=== PATIENT | male | born 1940 | race African-American/Black ===

== ENCOUNTER 2021-01-01 10:54 | Inpatient (IN) | payer SELFPAY ==
--- NOTE | 2021-01-01 12:45 | CR ---
Chest: Portable view of the chest was obtained. Comparison: No prior chest imaging is available. Patchy increased density is noted within the right upper and right lower chest. Slight atelectasis is seen within the left base. Heart size at the upper limits of normal. Tortuous thoracic aorta is seen. Impression: 1. Patchy increased density within the right upper and right lower lung. Please rule out COVID disease. Findings otherwise represent mild multifocal pneumonia. 2. Slight atelectasis and other findings as noted above. Diagnostic code #3
--- NOTE | 2021-01-01 12:52 | EDM.PDOC ---
ED HPI GENERAL MEDICAL PROBLEM - General Chief Complaint: Respiratory Problem Stated Complaint: POSS COVID Time Seen by Provider: 01/01/21 11:45 Source of Information: Reports: Patient, Family (Son- Rolf on phone helps to interpret), RN Notes Reviewed History Limitations: Reports: Language Barrier (pt does not speak Mohawk-son and daughter in law help to translat over the phone) - History of Present Illness INITIAL COMMENTS - FREE TEXT/NARRATIVE: Patient is an 80-year-old male who presents to the ER for evaluation of ongoing COVID-19 symptoms. Patient is not Mohawk speaking, but his son and [id number] helped to translate over the phone. The patient's was diagnosed with COVID-19 earlier this week, and the patient was having issues with shortness of breath, feeling generalized anxiety, and exhibiting some COVID-19 symptoms throughout the week. He presents to the ER via the direction of his family members to be checked out. They wanted to know if he had COVID-19 or not. Patient's O2 sats at time of triage were somewhat low, in the mid 80s he was placed on 2 L via nasal cannula and immediately improved to 96 to 97% on 2 L, and he was titrated to 1 L at that time, and subsequently had oxygen levels at around 93 to 94%. I did at that time turn his oxygen level off, and he did dip back down to 88% on room air. The family member also notes that he has issues with hearing, and previously had lung issues, that they equated to asthma but they were not sure of the exact diagnosis. But he was let go from work [place], due to his chronic lung disease. - Related Data Allergies Allergy/AdvReac Type Severity Reaction Status Date / Time No Known Allergies Allergy Verified 01/01/21 17:19 Home Meds: Home Meds . [No Known Home Meds] 01/01/21 [History] Past Medical History Respiratory History: Reports: Asthma Social & Family History - Tobacco Use Tobacco Use Status *Q: Never Tobacco User - Recreational Drug Use Recreational Drug Use: No ED ROS GENERAL - Review of Systems Review Of Systems: Comprehensive ROS is negative, except as noted in HPI. ED EXAM, GENERAL - Physical Exam Exam: See Below Exam Limited By: No Limitations General Appearance: Alert, WD/WN, No Apparent Distress Respiratory/Chest: No Respiratory Distress, Normal Breath Sounds, No Accessory Muscle Use, Chest Non-Tender, Decreased Breath Sounds (diffusely diminished bilaterally) Cardiovascular: Normal Peripheral Pulses, Regular Rate, Rhythm, No Edema Extremities: Normal Inspection, Normal Capillary Refill Neurological: Alert, Oriented, Normal Cognition, No Motor/Sensory Deficits Psychiatric: Normal Affect, Normal Mood Skin Exam: Warm, Dry, Intact, Normal Color, No Rash, Other (several linear scars across mid chest) #1 Interpretation EKG Date: 01/01/21 Time: 12:00 Rhythm: NSR Rate (Beats/Min): 69 [place]: Normal P-Wave: Present QRS: Normal ST-T: Normal QT: Normal Comparison: NA - No Prior EKG EKG Interpretation Comments: No obvious ischemia or acute ST changes noted, reviewed by myself and Dr. Chacko. Course - Vital Signs Last Recorded V/S: Last Vital Signs Temp 99.9 F 01/01/21 15:52 Pulse 70 01/01/21 15:52 Resp 18 01/01/21 15:52 BP 136/82 01/01/21 18:24 Pulse Ox 97 01/01/21 15:52 - Orders/Labs/Meds Orders: Active Orders 24 hr Category Date Time Status Admission Status [Patient Status] [ADT] Routine ADT 01/01/21 14:49 Active BLOOD CULTURE [MREF] Stat Lab 01/01/21 12:37 Received BLOOD CULTURE [MREF] Stat Lab 01/01/21 15:10 Received Sodium Chloride 0.9% [Normal Saline] 100 ml Med 01/01/21 13:30 Active IV ASDIRECTED Sodium Chloride 0.9% [Saline Flush] Med 01/01/21 13:00 Active 10 ml FLUSH ASDIRECTED PRN Sodium Chloride 0.9% [Saline Flush] Med 01/01/21 13:23 Active 10 ml FLUSH ONETIME PRN Blood Culture x2 Reflex Set [OM.PC] Stat Oth 01/01/21 14:05 Ordered Peripheral IV Insertion Adult [OM.PC] Routine Oth 01/01/21 13:00 Ordered EKG 12 Lead [EK] Stat Ther 01/01/21 11:54 Ordered Medication Orders Acetaminophen (Acetaminophen 325 Mg Tab) 650 mg PO Q4H PRN PRN Reason: Pain (Mild 1-3)/fever Dexamethasone (Dexamethasone 4 Mg Tab) 6 mg PO DAILY@1300 P[facility]RO Stop: 01/10/21 13:01 Enoxaparin Sodium (Enoxaparin 40 Mg/0.4 Ml Syringe) 40 mg SUBCUT DAILY [facility] Famotidine (Famotidine 20 Mg Tab) 20 mg PO BID [facility] Last Admin: 01/01/21 21:01 Dose: 20 mg Documented by: MARK Sodium Chloride (Normal Saline) 100 mls @ 75 mls/hr IV ASDIRECTED PEDRO Remdesivir 100 mg/ Sodium (Chloride) 100 mls @ 100 mls/hr IV Q24H [facility] Stop: 01/05/21 15:59 Melatonin (Melatonin 3 Mg Tab) 6 mg PO BEDTIME [facility] Last Admin: 01/01/21 21:01 Dose: 6 mg Documented by: MARK Sodium Chloride (Sodium Chloride 0.9% 10 Ml Syringe) 10 ml FLUSH ASDIRECTED PRN PRN Reason: Keep Vein Open Last Admin: 01/01/21 13:10 Dose: 10 ml Documented by: ZAHEER Sodium Chloride (Sodium Chloride 0.9% 10 Ml Syringe) 10 ml FLUSH ONETIME PRN PRN Reason: IV FLUSH Zinc Sulfate (Zinc Sulfate 220 Mg Cap) 220 mg PO DAILY [facility] Labs: Laboratory Tests 01/01/21 01/01/21 01/01/21 Range/Units 12:00 12:16 12:16 WBC 2.47 L* (4.23-9.07) K/mm3 RBC 5.72 (4.63-6.08) M/mm3 Hgb 15.1 (13.7-17.5) gm/dl Hct 45.5 (40.1-51.0) % MCV 79.5 (79.0-92.2) fl MCH 26.4 (25.7-32.2) pg MCHC 33.2 (32.2-35.5) g/dl RDW Std Deviation 49.2 H (35.1-43.9) fL Plt Count 100 L (163-337) K/mm3 MPV 10.5 (9.4-12.3) fl Neut % (Auto) 60.3 (34.0-67.9) % Lymph % (Auto) 25.5 (21.8-53.1) % [place] % (Auto) 13.4 H (5.3-12.2) % Eos % (Auto) 0 L (0.8-7.0) Baso % (Auto) 0.4 (0.1-1.2) % Neut # (Auto) 1.49 L (1.78-5.38) K/mm3 Lymph # (Auto) 0.63 L (1.32-3.57) K/mm3 [place] # (Auto) 0.33 (0.30-0.82) K/mm3 Eos # (Auto) 0.00 L (0.04-0.54) K/mm3 Baso # (Auto) 0.01 (0.01-0.08) K/mm3 D-Dimer, Quantitative 6.15 H (0.19-0.50) mg/L Sodium (136-145) mEq/L Potassium (3.5-5.1) mEq/L Chloride (98-107) mEq/L Carbon Dioxide (21-32) mEq/L Anion Gap (5-15) BUN (7-18) mg/dL Creatinine (0.7-1.3) mg/dL Est Cr Clr Drug Dosing mL/min Estimated GFR (MDRD) (>60) mL/min BUN/Creatinine Ratio (14-18) Glucose (70-99) mg/dL Lactic Acid (0.4-2.0) mmol/L Calcium (8.5-10.1) mg/dL Total Bilirubin (0.2-1.0) mg/dL AST (15-37) U/L ALT (16-63) U/L Alkaline Phosphatase (46-116) U/L Troponin I (0.00-0.056) ng/mL Total Protein (6.4-8.2) g/dl Albumin (3.4-5.0) g/dl Globulin gm/dL Albumin/Globulin Ratio (1-2) SARS-CoV-2 RNA (CHELY) Positive H (NEGATIVE) 01/01/21 01/01/21 Range/Units 12:16 12:37 WBC (4.23-9.07) K/mm3 RBC (4.63-6.08) M/mm3 Hgb (13.7-17.5) gm/dl Hct (40.1-51.0) % MCV (79.0-92.2) fl MCH (25.7-32.2) pg MCHC (32.2-35.5) g/dl RDW Std Deviation (35.1-43.9) fL Plt Count (163-337) K/mm3 MPV (9.4-12.3) fl Neut % (Auto) (34.0-67.9) % Lymph % (Auto) (21.8-53.1) % [place] % (Auto) (5.3-12.2) % Eos % (Auto) (0.8-7.0) Baso % (Auto) (0.1-1.2) % Neut # (Auto) (1.78-5.38) K/mm3 Lymph # (Auto) (1.32-3.57) K/mm3 [place] # (Auto) (0.30-0.82) K/mm3 Eos # (Auto) (0.04-0.54) K/mm3 Baso # (Auto) (0.01-0.08) K/mm3 D-Dimer, Quantitative (0.19-0.50) mg/L Sodium 134 L (136-145) mEq/L Potassium 3.8 (3.5-5.1) mEq/L Chloride 99 (98-107) mEq/L Carbon Dioxide 30 (21-32) mEq/L Anion Gap 8.8 (5-15) BUN 9 (7-18) mg/dL Creatinine 1.0 (0.7-1.3) mg/dL Est Cr Clr Drug Dosing 61.70 mL/min Estimated GFR (MDRD) > 60 (>60) mL/min BUN/Creatinine Ratio 9.0 L (14-18) Glucose 88 (70-99) mg/dL Lactic Acid 3.6 H* (0.4-2.0) mmol/L Calcium 8.1 L (8.5-10.1) mg/dL Total Bilirubin 0.3 (0.2-1.0) mg/dL AST 52 H (15-37) U/L ALT 36 (16-63) U/L Alkaline Phosphatase 90 (46-116) U/L Troponin I 0.021 (0.00-0.056) ng/mL Total Protein 7.5 (6.4-8.2) g/dl Albumin 3.2 L (3.4-5.0) g/dl Globulin 4.3 gm/dL Albumin/Globulin Ratio 0.7 L (1-2) SARS-CoV-2 RNA (CHELY) (NEGATIVE) Meds: Medications Generic Name Dose Route Start Last Admin Trade Name Nagi PRN Reason Stop Dose Admin Acetaminophen 650 mg 01/01/21 19:12 Acetaminophen 325 Mg Tab PO Q4H PRN Pain (Mild 1-3)/fever Dexamethasone 6 mg 01/02/21 13:00 Dexamethasone 4 Mg Tab PO 01/10/21 13:01 DAILY@1300 PEDRO Enoxaparin Sodium 40 mg 01/02/21 09:00 Enoxaparin 40 Mg/0.4 Ml Syringe SUBCUT DAILY [facility] Famotidine 20 mg 01/01/21 21:00 01/01/21 21:01 Famotidine 20 Mg Tab PO 20 mg BID [facility] Administration Sodium Chloride 100 mls @ 75 mls/hr 01/01/21 13:30 Normal Saline IV ASDIRECTED PEDRO Remdesivir 100 mg/ Sodium 100 mls @ 100 mls/hr 01/02/21 15:00 Chloride IV 01/05/21 15:59 Q24H PEDRO Melatonin 6 mg 01/01/21 21:00 01/01/21 21:01 Melatonin 3 Mg Tab PO 6 mg BEDTIME [facility]RO Administration Sodium Chloride 10 ml 01/01/21 13:00 01/01/21 13:10 Sodium Chloride 0.9% 10 Ml Syringe FLUSH 10 ml ASDIRECTED PRN Administration Keep Vein Open Sodium Chloride 10 ml 01/01/21 13:23 Sodium Chloride 0.9% 10 Ml Syringe FLUSH ONETIME PRN IV FLUSH Zinc Sulfate 220 mg 01/02/21 09:00 Zinc Sulfate 220 Mg Cap PO DAILY [facility]RO Discontinued Medications Generic Name Dose Route Start Last Admin Trade Name Nagi PRN Reason Stop Dose Admin Dexamethasone 6 mg 01/01/21 14:06 01/01/21 14:25 Dexamethasone 10 Mg/Ml Sdv IVPUSH 01/01/21 14:07 6 mg ONETIME ONE Administration Ceftriaxone Sodium 2 gm/ 100 mls @ 200 mls/hr 01/01/21 14:06 01/01/21 14:24 Sodium Chloride IV 01/01/21 14:35 200 mls/hr ONETIME ONE Administration Remdesivir 200 mg/ Sodium 250 mls @ 250 mls/hr 01/01/21 15:00 01/01/21 15:09 Chloride IV 01/01/21 15:59 250 mls/hr ONETIME ONE Administration Iopamidol 100 ml 01/01/21 13:23 01/01/21 18:07 Iopamidol 755 Mg/Ml 100 Ml Bottle IVPUSH 01/01/21 13:24 Not Given ONETIME ONE - Re-Assessments/Exams Free Text/Narrative Re-Assessment/Exam: 01/01/21 13:00 Patient presents to the ER for the evaluation of his suspected COVID-19 disease. was diagnosed with COVID-19 earlier this week. O2 sats were low at the time of triage, and was placed on oxygen, and is still requiring oxygen at this time. His Covid screen did come back positive., And his D-dimer is elevated at 6.15, and his white cell count is low at 2.47, which could be due to viral disease. We have no other labs to compare to. His chest x-ray did show patchy increased density within the right upper and right lower lung, consistent with multifocal pneumonia, most consistent with COVID-19 disease. There is also slight atelectasis noted. I will go over these findings with the patient's family member, for further management. 01/01/21 13:44 I was able to speak with the patient's son again, he states that the patient speaks language, and the dialect of [place], [place], and [place]. I was able to find Eliana on [facility]. The patient's son is concerned, due to the patient's being at home, and sick that he may not do well at home, if we will try to send him home with oxygen, and for conservative measures. Due to the patient being hypoxic, he does not qualify for IV Regeneron therapy at this time. I will speak with the charge nurse, regarding bed status and hopefully we can get him admitted for ongoing COVID-19 management. Departure - Departure Time of Disposition: 14:00 Disposition: Admitted As Inpatient 65 Condition: Good Clinical Impression: Hypoxia, COVID-19 - Discharge Information Sepsis Event Note (ED) - Evaluation Sepsis Screening Result: Possible Sepsis Risk - Focused Exam Vital Signs: Vital Signs Temp Pulse Resp BP Pulse Ox 01/01/21 11:47 98.5 F 66 24 H 150/97 H 84 L - My Orders Last 24 Hours: My Active Orders 01/01/21 11:54 EKG 12 Lead [EK] Stat 01/01/21 12:37 BLOOD CULTURE [MREF] Stat 01/01/21 13:00 Sodium Chloride 0.9% [Saline Flush] 10 ml FLUSH ASDIRECTED PRN Peripheral IV Insertion Adult [OM.PC] Routine 01/01/21 13:23 Sodium Chloride 0.9% [Saline Flush] 10 ml FLUSH ONETIME PRN 01/01/21 13:30 Sodium Chloride 0.9% [Normal Saline] 100 ml IV ASDIRECTED 01/01/21 14:05 Blood Culture x2 Reflex Set [OM.PC] Stat 01/01/21 14:49 Admission Status [Patient Status] [ADT] Routine 01/01/21 15:10 BLOOD CULTURE [MREF] Stat - Assessment/Plan Last 24 Hours: My Active Orders 01/01/21 11:54 EKG 12 Lead [EK] Stat 01/01/21 12:37 BLOOD CULTURE [MREF] Stat 01/01/21 13:00 Sodium Chloride 0.9% [Saline Flush] 10 ml FLUSH ASDIRECTED PRN Peripheral IV Insertion Adult [OM.PC] Routine 01/01/21 13:23 Sodium Chloride 0.9% [Saline Flush] 10 ml FLUSH ONETIME PRN 01/01/21 13:30 Sodium Chloride 0.9% [Normal Saline] 100 ml IV ASDIRECTED 01/01/21 14:05 Blood Culture x2 Reflex Set [OM.PC] Stat 01/01/21 14:49 Admission Status [Patient Status] [ADT] Routine 01/01/21 15:10 BLOOD CULTURE [MREF] Stat
[2021-01-01] MEDS ORDERED: Sodium Chloride 0.9% 10 ML Syringe FLUSH PRN ×2 (13:00→13:23)
[2021-01-01] MEDS ORDERED: Iopamidol 755 Mg/ML 100 ML Bottle IVPUSH ONE (13:23)
[2021-01-01] MEDS ORDERED: Sodium Chloride 0.9% 100 ML IV SCH (13:30)
--- NOTE | 2021-01-01 14:01 | CT ---
CT chest Technique: Multiple axial sections through the chest were obtained. Intravenous contrast was utilized. Reconstructed coronal and sagittal images were obtained. Comparison: Prior chest x-ray performed earlier on the same day (12:01 PM). Findings: Pulmonary arteries are well opacified. No focal perfusion defects are seen to indicate pulmonary embolism. Heart is enlarged. Small hiatal hernia is noted. Visualized upper abdominal structures show nothing acute. Thoracic aorta shows no aneurysm. No mediastinal adenopathy is seen. Soft tissue density is seen within the superior mediastinum which in a younger person could represent thymic tissue but is unlikely as an etiology for a patient of this age. This could possibly represent mild thymic hyperplasia. There is evidence of pleural calcifications within the right chest. Diffuse emphysematous changes are present throughout both lungs. Slight parenchymal density is noted within the right lung base either due to focal fibrosis or small area of possible COVID pneumonia. Lungs otherwise show no other acute process. Bone window settings were reviewed which show mild scattered degenerative change within the spine. No acute osseous abnormality is appreciated. Impression: 1. No findings of pulmonary embolism. 2. Severe changes of COVID disease throughout both sides of the chest. 3. Mild parenchymal density within the right lung base either due to focal fibrosis or small area of COVID pneumonia. 4. Other findings as noted above. Diagnostic code #3
[2021-01-01] MEDS ORDERED: Dexamethasone 10 MG/ML SDV IVPUSH ONE (14:06)
[2021-01-01] MEDS ORDERED: REMDESIVIR 200 MG in Sodium Chloride 0.9% 250 ML IV ONE ×2 (14:06→15:00)
[2021-01-01] MEDS ORDERED: cefTRIAXone 2 GM in Sodium Chloride 0.9% 100 ML IV ONE (14:06)
--- NOTE | 2021-01-01 15:30 | PCM.HP.2 ---
H&P History of Present Illness - General Date of Service: 01/01/21 Admit Problem/Dx: Admission Diagnosis/Problem Admission Diagnosis/Problem Hypoxia - History of Present Illness Initial Comments - Free Text/Narative: 80-year-old male that does not speak Frisian presented to the emergency department with increasing shortness of breath, feeling generalized anxiety, and exhibiting some COVID-19 symptoms throughout the week. Because he does not speak Frisian his son was used for an bilingual interpreter and further data was achieved through the emergency providers notes. Patient has not received a Covid vaccina tion. When he arrived at the emergency department he did have oxygen stagnation saturations in the 80s. After 2 L via nasal cannula he improved to 96 to 97%. This was turned down to 1 L. Patient has a history of some kind of lung disease because he worked in the [employer]. Otherwise he is in good health. Son states he has had a cough since last month, which is at least in a week. CT angiogram of the chest showed no pulmonary embolism, severe changes of COVID- 19 disease throughout both sides of the chest. Mild parenchymal density within the right lung base either due to to focal fibrosis or small area of Covid pneumonia. White count 2.5, platelet count 100,000, D-dimer 6.15, sodium 134, creatinine 1.0, AST 52, ALT 36, troponin 0 0.026, albumin 3.2 - Related Data Allergies/Adverse Reactions: Allergies Allergy/AdvReac Type Severity Reaction Status Date / Time No Known Allergies Allergy Verified 01/01/21 17:19 Home Medications: Home Meds . [No Known Home Meds] 01/01/21 [History] Past Medical History Respiratory History: Reports: Asthma Social & Family History - Tobacco Use Tobacco Use Status *Q: Never Tobacco User - Recreational Drug Use Recreational Drug Use: No H&P Review of Systems - Review of Systems: Review Of Systems: Comprehensive ROS is negative, except as noted in HPI. Exam - Exam Exam: See Below - Vital Signs Vital Signs: Last Vital Signs Temp 98.5 F 01/01/21 11:47 Pulse 66 01/01/21 11:47 Resp 24 H 01/01/21 11:47 BP 150/97 H 01/01/21 11:47 Pulse Ox 84 L 01/01/21 11:47 Weight: 170 lb - Exam Quality Assessment: Supplemental Oxygen General: Alert, Oriented, 4 HEENT: Conjunctiva Clear, Hearing Intact, Mucosa Moist & [place] Neck: Supple, Trachea Midline, 2 Lungs: Normal Respiratory Effort, Crackles (Bibasilar) Cardiovascular: Regular Rate, Regular Rhythm GI/Abdominal Exam: Normal Bowel Sounds, Soft, Non-Tender, No Organomegaly, No Distention Extremities: Normal Inspection, Normal Range of Motion, Non-Tender, No Pedal Edema, Normal Capillary Refill Skin: Warm, Dry, Intact Psychiatric: Alert, Normal Affect, Normal Mood - Patient Data Lab Results Last 24 hrs: Laboratory Results - last 24 hr 01/01/21 01/01/21 01/01/21 Range/Units 12:00 12:16 12:16 WBC 2.47 L* (4.23-9.07) K/mm3 RBC 5.72 (4.63-6.08) M/mm3 Hgb 15.1 (13.7-17.5) gm/dl Hct 45.5 (40.1-51.0) % MCV 79.5 (79.0-92.2) fl MCH 26.4 (25.7-32.2) pg MCHC 33.2 (32.2-35.5) g/dl RDW Std Deviation 49.2 H (35.1-43.9) fL Plt Count 100 L (163-337) K/mm3 MPV 10.5 (9.4-12.3) fl Neut % (Auto) 60.3 (34.0-67.9) % Lymph % (Auto) 25.5 (21.8-53.1) % [place] % (Auto) 13.4 H (5.3-12.2) % Eos % (Auto) 0 L (0.8-7.0) Baso % (Auto) 0.4 (0.1-1.2) % Neut # (Auto) 1.49 L (1.78-5.38) K/mm3 Lymph # (Auto) 0.63 L (1.32-3.57) K/mm3 [place] # (Auto) 0.33 (0.30-0.82) K/mm3 Eos # (Auto) 0.00 L (0.04-0.54) K/mm3 Baso # (Auto) 0.01 (0.01-0.08) K/mm3 D-Dimer, Quantitative 6.15 H (0.19-0.50) mg/L Sodium (136-145) mEq/L Potassium (3.5-5.1) mEq/L Chloride (98-107) mEq/L Carbon Dioxide (21-32) mEq/L Anion Gap (5-15) BUN (7-18) mg/dL Creatinine (0.7-1.3) mg/dL Est Cr Clr Drug Dosing mL/min Estimated GFR (MDRD) (>60) mL/min BUN/Creatinine Ratio (14-18) Glucose (70-99) mg/dL Lactic Acid (0.4-2.0) mmol/L Calcium (8.5-10.1) mg/dL Total Bilirubin (0.2-1.0) mg/dL AST (15-37) U/L ALT (16-63) U/L Alkaline Phosphatase (46-116) U/L Troponin I (0.00-0.056) ng/mL Total Protein (6.4-8.2) g/dl Albumin (3.4-5.0) g/dl Globulin gm/dL Albumin/Globulin Ratio (1-2) SARS-CoV-2 RNA (CHELY) Positive H (NEGATIVE) 01/01/21 01/01/21 Range/Units 12:16 12:37 WBC (4.23-9.07) K/mm3 RBC (4.63-6.08) M/mm3 Hgb (13.7-17.5) gm/dl Hct (40.1-51.0) % MCV (79.0-92.2) fl MCH (25.7-32.2) pg MCHC (32.2-35.5) g/dl RDW Std Deviation (35.1-43.9) fL Plt Count (163-337) K/mm3 MPV (9.4-12.3) fl Neut % (Auto) (34.0-67.9) % Lymph % (Auto) (21.8-53.1) % [place] % (Auto) (5.3-12.2) % Eos % (Auto) (0.8-7.0) Baso % (Auto) (0.1-1.2) % Neut # (Auto) (1.78-5.38) K/mm3 Lymph # (Auto) (1.32-3.57) K/mm3 [place] # (Auto) (0.30-0.82) K/mm3 Eos # (Auto) (0.04-0.54) K/mm3 Baso # (Auto) (0.01-0.08) K/mm3 D-Dimer, Quantitative (0.19-0.50) mg/L Sodium 134 L (136-145) mEq/L Potassium 3.8 (3.5-5.1) mEq/L Chloride 99 (98-107) mEq/L Carbon Dioxide 30 (21-32) mEq/L Anion Gap 8.8 (5-15) BUN 9 (7-18) mg/dL Creatinine 1.0 (0.7-1.3) mg/dL Est Cr Clr Drug Dosing 61.70 mL/min Estimated GFR (MDRD) > 60 (>60) mL/min BUN/Creatinine Ratio 9.0 L (14-18) Glucose 88 (70-99) mg/dL Lactic Acid 3.6 H* (0.4-2.0) mmol/L Calcium 8.1 L (8.5-10.1) mg/dL Total Bilirubin 0.3 (0.2-1.0) mg/dL AST 52 H (15-37) U/L ALT 36 (16-63) U/L Alkaline Phosphatase 90 (46-116) U/L Troponin I 0.021 (0.00-0.056) ng/mL Total Protein 7.5 (6.4-8.2) g/dl Albumin 3.2 L (3.4-5.0) g/dl Globulin 4.3 gm/dL Albumin/Globulin Ratio 0.7 L (1-2) SARS-CoV-2 RNA (CHELY) (NEGATIVE) Result Diagrams: 01/01/21 12:16 01/01/21 12:16 Sepsis Event Note - Evaluation Sepsis Screening Result: Possible Sepsis Risk - Focused Exam Vital Signs: Vital Signs Temp Pulse Resp BP Pulse Ox 01/01/21 11:47 98.5 F 66 24 H 150/97 H 84 L - Problem List (1) Pneumonia due to COVID-19 virus SNOMED Code(s): 703076785405898033 ICD Code: U07.1 - COVID-19; J12.82 - PNEUMONIA DUE TO CORONAVIRUS DISEASE 2019 Status: Acute Current Visit: Yes Problem List Initiated/Reviewed/Updated: Yes Orders Last 24hrs: Active Orders 24 hr Category Date Time Status Admission Status [Patient Status] [ADT] Routine ADT 01/01/21 14:49 Active Peripheral IV Care [RC] . DIRECTED Care 01/01/21 13:01 Active BLOOD CULTURE [MREF] Stat Lab 01/01/21 12:37 Received BLOOD CULTURE [MREF] Stat Lab 01/01/21 15:10 Received REFLEX LACTIC ACID YES OR NO [CHEM] Routine Lab 01/01/21 15:20 Received Remdesivir 200 mg Med 01/01/21 15:00 Active Sodium Chloride 0.9% [Normal Saline] 250 ml IV ONETIME Sodium Chloride 0.9% [Normal Saline] 100 ml Med 01/01/21 13:30 Active IV ASDIRECTED Sodium Chloride 0.9% [Saline Flush] Med 01/01/21 13:00 Active 10 ml FLUSH ASDIRECTED PRN Sodium Chloride 0.9% [Saline Flush] Med 01/01/21 13:23 Active 10 ml FLUSH ONETIME PRN Blood Culture x2 Reflex Set [OM.PC] Stat Oth 01/01/21 14:05 Ordered Peripheral IV Insertion Adult [OM.PC] Routine Oth 01/01/21 13:00 Ordered EKG 12 Lead [EK] Stat Ther 01/01/21 11:54 Ordered Medication Orders Sodium Chloride (Normal Saline) 100 mls @ 75 mls/hr IV ASDIRECTED PEDRO Remdesivir 200 mg/ Sodium (Chloride) 250 mls @ 250 mls/hr IV ONETIME ONE Stop: 01/01/21 15:59 Last Admin: 01/01/21 15:09 Dose: 250 mls/hr Documented by: MATLBIL Sodium Chloride (Sodium Chloride 0.9% 10 Ml Syringe) 10 ml FLUSH ASDIRECTED PRN PRN Reason: Keep Vein Open Last Admin: 01/01/21 13:10 Dose: 10 ml Documented by: MORIvoryJOR Sodium Chloride (Sodium Chloride 0.9% 10 Ml Syringe) 10 ml FLUSH ONETIME PRN PRN Reason: IV FLUSH Assessment/Plan Comment:: 80-year-old non-Frisian speaker male with 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 -Patient is leukopenic with a white count of 2.5. -D-dimer 6.15 with a negative CTA for pulmonary embolism -CT showing severe changes of COVID disease throughout both lungs -Lactic acid of 3.6 with repeat of 2.2 -CRP, ferritin, LDH not done given -Rocephin, Rocephin, dexamethasone and remdesivir in the emergency department -Continue dexamethasone and remdesivir -Start azithromycin -Start melatonin, Pepcid, zinc -I-S, Acapella, respiratory therapy to follow -Titrate if FiO2 to keep SPO2 92% or above History of chronic lung disease of unknown type This places the patient at significantly increased risk of complications. -Albuterol MDI every 2 hours as needed -DuoNeb every 6 hours as needed Thrombocytopenia likely secondary to Covid Leukopenia also likely secondary to Covid -Will cover with antibiotics in case secondary bacterial infection that is not recognized in the chest. VTE prophylaxis with Lovenox if platelets stay above 100,000 CODE STATUS: DNR/DNI - Mortality Measure Prognosis:: Good
[2021-01-01] MEDS ORDERED: Acetaminophen 325 MG Tab PO PRN (19:12)
[2021-01-01] MEDS: Famotidine 20 MG Tab PO SCH (21:01)
[2021-01-01] MEDS: Melatonin 3 MG Tab PO SCH (21:01)
[2021-01-02] MEDS ORDERED: Enoxaparin 40 MG/0.4 ML Syringe SUBCUT SCH ×2 (09:00)
--- NOTE | 2021-01-02 09:46 | US ---
Bilateral lower extremity deep venous ultrasound: Duplex and color Doppler evaluation was obtained of the right and left common femoral, proximal greater saphenous, superficial femoral, popliteal, posterior tibial and peroneal veins. Comparison: No prior venous imaging is available. Findings: Normal phasic flow, augmentation and compression are seen. Impression: 1. No findings of deep venous thrombosis is seen within either the right or left lower extremities. Diagnostic code #1
[2021-01-02] MEDS: Famotidine 20 MG Tab PO SCH ×2 (10:27→20:30)
[2021-01-02] MEDS: Zinc Sulfate 220 MG Cap PO SCH (10:29)
[2021-01-02] MEDS: Enoxaparin 80 MG/0.8 ML Syringe SUBCUT SCH ×2 (10:30→20:29)
[2021-01-02] MEDS: Dexamethasone 4 MG Tab PO SCH (13:26)
[2021-01-02] MEDS ORDERED: Magnesium Sulfate/Water 4 GM in Premix Bag 1 BAG IV ONE (14:02)
--- NOTE | 2021-01-02 16:29 | PCM.PN ---
- General Info Date of Service: 01/02/21 Admission Dx/Problem (Free Text): Admission Diagnosis/Problem Admission Diagnosis/Problem Hypoxia Subjective Update: Patient denies any pain, shortness of breath, or cough. Functional Status: Reports: Pain Controlled - Review of Systems General: Reports: No Symptoms HEENT: Reports: No Symptoms Pulmonary: Reports: No Symptoms Cardiovascular: Reports: No Symptoms Gastrointestinal: Reports: No Symptoms Musculoskeletal: Reports: No Symptoms - Patient Data Vitals - Most Recent: Last Vital Signs Temp 98.6 F 01/02/21 07:55 Pulse 66 01/02/21 07:55 Resp 20 01/02/21 07:55 BP 130/79 01/02/21 07:55 Pulse Ox 93 L 01/02/21 15:25 Weight - Most Recent: 160 lb 14.4 oz I&O - Last 24 Hours: Intake & Output 01/02/21 01/02/21 01/02/21 06:59 14:59 22:59 Intake Total 200 200 Output Total 400 Balance -200 200 Lab Results Last 24 Hours: Laboratory Results - last 24 hr 01/01/21 01/02/21 01/02/21 Range/Units 18:16 06:03 06:03 WBC 2.68 L (4.23-9.07) K/mm3 RBC 5.92 (4.63-6.08) M/mm3 Hgb 15.8 (13.7-17.5) gm/dl Hct 46.3 (40.1-51.0) % MCV 78.2 L (79.0-92.2) fl MCH 26.7 (25.7-32.2) pg MCHC 34.1 (32.2-35.5) g/dl RDW Std Deviation 47.0 H (35.1-43.9) fL Plt Count 120 L (163-337) K/mm3 MPV 11.6 (9.4-12.3) fl Neut % (Auto) 52.9 (34.0-67.9) % Lymph % (Auto) 32.5 (21.8-53.1) % [place] % (Auto) 13.8 H (5.3-12.2) % Eos % (Auto) 0 L (0.8-7.0) Baso % (Auto) 0.4 (0.1-1.2) % Neut # (Auto) 1.42 L (1.78-5.38) K/mm3 Lymph # (Auto) 0.87 L (1.32-3.57) K/mm3 [place] # (Auto) 0.37 (0.30-0.82) K/mm3 Eos # (Auto) 0.00 L (0.04-0.54) K/mm3 Baso # (Auto) 0.01 (0.01-0.08) K/mm3 Manual Slide Review Normal smear D-Dimer, Quantitative 9.55 H (0.19-0.50) mg/L Sodium (136-145) mEq/L Potassium (3.5-5.1) mEq/L Chloride (98-107) mEq/L Carbon Dioxide (21-32) mEq/L Anion Gap (5-15) BUN (7-18) mg/dL Creatinine (0.7-1.3) mg/dL Est Cr Clr Drug Dosing mL/min Estimated GFR (MDRD) (>60) mL/min BUN/Creatinine Ratio (14-18) Glucose (70-99) mg/dL Lactic Acid 2.2 H* (0.4-2.0) mmol/L Calcium (8.5-10.1) mg/dL Phosphorus (2.6-4.7) mg/dL Magnesium (1.8-2.4) mg/dL Total Bilirubin (0.2-1.0) mg/dL AST (15-37) U/L ALT (16-63) U/L Alkaline Phosphatase (46-116) U/L C-Reactive Protein (<1.0) mg/dL Total Protein (6.4-8.2) g/dl Albumin (3.4-5.0) g/dl Globulin gm/dL Albumin/Globulin Ratio (1-2) 01/02/21 Range/Units 06:03 WBC (4.23-9.07) K/mm3 RBC (4.63-6.08) M/mm3 Hgb (13.7-17.5) gm/dl Hct (40.1-51.0) % MCV (79.0-92.2) fl MCH (25.7-32.2) pg MCHC (32.2-35.5) g/dl RDW Std Deviation (35.1-43.9) fL Plt Count (163-337) K/mm3 MPV (9.4-12.3) fl Neut % (Auto) (34.0-67.9) % Lymph % (Auto) (21.8-53.1) % [place] % (Auto) (5.3-12.2) % Eos % (Auto) (0.8-7.0) Baso % (Auto) (0.1-1.2) % Neut # (Auto) (1.78-5.38) K/mm3 Lymph # (Auto) (1.32-3.57) K/mm3 [place] # (Auto) (0.30-0.82) K/mm3 Eos # (Auto) (0.04-0.54) K/mm3 Baso # (Auto) (0.01-0.08) K/mm3 Manual Slide Review D-Dimer, Quantitative (0.19-0.50) mg/L Sodium 137 (136-145) mEq/L Potassium 4.2 (3.5-5.1) mEq/L Chloride 101 (98-107) mEq/L Carbon Dioxide 26 (21-32) mEq/L Anion Gap 14.2 (5-15) BUN 15 (7-18) mg/dL Creatinine 0.8 (0.7-1.3) mg/dL Est Cr Clr Drug Dosing 72.42 mL/min Estimated GFR (MDRD) > 60 (>60) mL/min BUN/Creatinine Ratio 18.8 H (14-18) Glucose 112 H (70-99) mg/dL Lactic Acid (0.4-2.0) mmol/L Calcium 8.1 L (8.5-10.1) mg/dL Phosphorus 3.3 (2.6-4.7) mg/dL Magnesium 1.3 L (1.8-2.4) mg/dL Total Bilirubin 0.3 (0.2-1.0) mg/dL AST 70 H (15-37) U/L ALT 43 (16-63) U/L Alkaline Phosphatase 88 (46-116) U/L C-Reactive Protein 6.5 H* (<1.0) mg/dL Total Protein 7.3 (6.4-8.2) g/dl Albumin 2.9 L (3.4-5.0) g/dl Globulin 4.4 gm/dL Albumin/Globulin Ratio 0.7 L (1-2) Med Orders - Current: Current Medications Acetaminophen (Acetaminophen 325 Mg Tab) 650 mg PO Q4H PRN PRN Reason: Pain (Mild 1-3)/fever Last Admin: 01/02/21 10:28 Dose: 650 mg Documented by: Dexamethasone (Dexamethasone 4 Mg Tab) 6 mg PO DAILY@1300 [facility] Stop: 01/10/21 13:01 Last Admin: 01/02/21 13:26 Dose: 6 mg Documented by: Enoxaparin Sodium (Enoxaparin 80 Mg/0.8 Ml Syringe) 70 mg SUBCUT Q12HR [facility] Last Admin: 01/02/21 10:30 Dose: 70 mg Documented by: Famotidine (Famotidine 20 Mg Tab) 20 mg PO BID [facility] Last Admin: 01/02/21 10:27 Dose: 20 mg Documented by: Remdesivir 100 mg/ Sodium (Chloride) 100 mls @ 100 mls/hr IV Q24H [facility] Stop: 01/05/21 15:59 Magnesium Sulfate 4 gm/ Premix 50 mls @ 12.5 mls/hr IV ONETIME ONE Stop: 01/02/21 18:01 Last Admin: 01/02/21 14:27 Dose: 12.5 mls/hr Documented by: Melatonin (Melatonin 3 Mg Tab) 6 mg PO BEDTIME [facility] Last Admin: 01/01/21 21:01 Dose: 6 mg Documented by: Sodium Chloride (Sodium Chloride 0.9% 10 Ml Syringe) 10 ml FLUSH ASDIRECTED PRN PRN Reason: Keep Vein Open Last Admin: 01/01/21 13:10 Dose: 10 ml Documented by: Zinc Sulfate (Zinc Sulfate 220 Mg Cap) 220 mg PO DAILY [facility] Last Admin: 01/02/21 10:29 Dose: 220 mg Documented by: Discontinued Medications Dexamethasone (Dexamethasone 10 Mg/Ml Sdv) 6 mg IVPUSH ONETIME ONE Stop: 01/01/21 14:07 Last Admin: 01/01/21 14:25 Dose: 6 mg Documented by: Enoxaparin Sodium (Enoxaparin 40 Mg/0.4 Ml Syringe) 40 mg SUBCUT DAILY [facility] Enoxaparin Sodium (Enoxaparin 40 Mg/0.4 Ml Syringe) 40 mg SUBCUT BID [facility] Last Admin: 01/02/21 12:07 Dose: Not Given Documented by: Sodium Chloride (Normal Saline) 100 mls @ 75 mls/hr IV ASDIRECTED [facility] Ceftriaxone Sodium 2 gm/ (Sodium Chloride) 100 mls @ 200 mls/hr IV ONETIME ONE Stop: 01/01/21 14:35 Last Admin: 01/01/21 14:24 Dose: 200 mls/hr Documented by: Remdesivir 200 mg/ Sodium (Chloride) 250 mls @ 250 mls/hr IV ONETIME ONE Stop: 01/01/21 15:59 Last Admin: 01/01/21 15:09 Dose: 250 mls/hr Documented by: Iopamidol (Iopamidol 755 Mg/Ml 100 Ml Bottle) 100 ml IVPUSH ONETIME ONE Stop: 01/01/21 13:24 Last Admin: 01/01/21 18:07 Dose: Not Given Documented by: Sodium Chloride (Sodium Chloride 0.9% 10 Ml Syringe) 10 ml FLUSH ONETIME PRN PRN Reason: IV FLUSH - Exam Quality Assessment: Supplemental Oxygen General: Alert, Oriented HEENT: Pupils Equal, Mucous Membr. Moist/[place] Neck: Supple Lungs: Normal Respiratory Effort, Crackles (Bibasilar) Cardiovascular: Regular Rate, Regular Rhythm GI/Abdominal Exam: Normal Bowel Sounds, Soft, Non-Tender, No Distention Extremities: Normal Inspection, Non-Tender, No Pedal Edema - Patient Data Lab Results Last 24 hrs: Laboratory Results - last 24 hr 01/01/21 01/02/21 01/02/21 Range/Units 18:16 06:03 06:03 WBC 2.68 L (4.23-9.07) K/mm3 RBC 5.92 (4.63-6.08) M/mm3 Hgb 15.8 (13.7-17.5) gm/dl Hct 46.3 (40.1-51.0) % MCV 78.2 L (79.0-92.2) fl MCH 26.7 (25.7-32.2) pg MCHC 34.1 (32.2-35.5) g/dl RDW Std Deviation 47.0 H (35.1-43.9) fL Plt Count 120 L (163-337) K/mm3 MPV 11.6 (9.4-12.3) fl Neut % (Auto) 52.9 (34.0-67.9) % Lymph % (Auto) 32.5 (21.8-53.1) % [place] % (Auto) 13.8 H (5.3-12.2) % Eos % (Auto) 0 L (0.8-7.0) Baso % (Auto) 0.4 (0.1-1.2) % Neut # (Auto) 1.42 L (1.78-5.38) K/mm3 Lymph # (Auto) 0.87 L (1.32-3.57) K/mm3 [place] # (Auto) 0.37 (0.30-0.82) K/mm3 Eos # (Auto) 0.00 L (0.04-0.54) K/mm3 Baso # (Auto) 0.01 (0.01-0.08) K/mm3 Manual Slide Review Normal smear D-Dimer, Quantitative 9.55 H (0.19-0.50) mg/L Sodium (136-145) mEq/L Potassium (3.5-5.1) mEq/L Chloride (98-107) mEq/L Carbon Dioxide (21-32) mEq/L Anion Gap (5-15) BUN (7-18) mg/dL Creatinine (0.7-1.3) mg/dL Est Cr Clr Drug Dosing mL/min Estimated GFR (MDRD) (>60) mL/min BUN/Creatinine Ratio (14-18) Glucose (70-99) mg/dL Lactic Acid 2.2 H* (0.4-2.0) mmol/L Calcium (8.5-10.1) mg/dL Phosphorus (2.6-4.7) mg/dL Magnesium (1.8-2.4) mg/dL Total Bilirubin (0.2-1.0) mg/dL AST (15-37) U/L ALT (16-63) U/L Alkaline Phosphatase (46-116) U/L C-Reactive Protein (<1.0) mg/dL Total Protein (6.4-8.2) g/dl Albumin (3.4-5.0) g/dl Globulin gm/dL Albumin/Globulin Ratio (1-2) 01/02/21 Range/Units 06:03 WBC (4.23-9.07) K/mm3 RBC (4.63-6.08) M/mm3 Hgb (13.7-17.5) gm/dl Hct (40.1-51.0) % MCV (79.0-92.2) fl MCH (25.7-32.2) pg MCHC (32.2-35.5) g/dl RDW Std Deviation (35.1-43.9) fL Plt Count (163-337) K/mm3 MPV (9.4-12.3) fl Neut % (Auto) (34.0-67.9) % Lymph % (Auto) (21.8-53.1) % [place] % (Auto) (5.3-12.2) % Eos % (Auto) (0.8-7.0) Baso % (Auto) (0.1-1.2) % Neut # (Auto) (1.78-5.38) K/mm3 Lymph # (Auto) (1.32-3.57) K/mm3 [place] # (Auto) (0.30-0.82) K/mm3 Eos # (Auto) (0.04-0.54) K/mm3 Baso # (Auto) (0.01-0.08) K/mm3 Manual Slide Review D-Dimer, Quantitative (0.19-0.50) mg/L Sodium 137 (136-145) mEq/L Potassium 4.2 (3.5-5.1) mEq/L Chloride 101 (98-107) mEq/L Carbon Dioxide 26 (21-32) mEq/L Anion Gap 14.2 (5-15) BUN 15 (7-18) mg/dL Creatinine 0.8 (0.7-1.3) mg/dL Est Cr Clr Drug Dosing 72.42 mL/min Estimated GFR (MDRD) > 60 (>60) mL/min BUN/Creatinine Ratio 18.8 H (14-18) Glucose 112 H (70-99) mg/dL Lactic Acid (0.4-2.0) mmol/L Calcium 8.1 L (8.5-10.1) mg/dL Phosphorus 3.3 (2.6-4.7) mg/dL Magnesium 1.3 L (1.8-2.4) mg/dL Total Bilirubin 0.3 (0.2-1.0) mg/dL AST 70 H (15-37) U/L ALT 43 (16-63) U/L Alkaline Phosphatase 88 (46-116) U/L C-Reactive Protein 6.5 H* (<1.0) mg/dL Total Protein 7.3 (6.4-8.2) g/dl Albumin 2.9 L (3.4-5.0) g/dl Globulin 4.4 gm/dL Albumin/Globulin Ratio 0.7 L (1-2) Result Diagrams: 01/02/21 06:03 01/02/21 06:03 Sepsis Event Note - Evaluation Sepsis Screening Result: No Definite Risk - Focused Exam Vital Signs: Vital Signs Temp Pulse Resp BP Pulse Ox Pulse Ox 01/02/21 15:25 93 L 01/02/21 14:46 98 01/02/21 09:10 92 L 01/02/21 07:55 98.6 F 66 20 130/79 100 01/02/21 04:29 97.9 F 57 L 20 143/97 H 95 - Problem List & Annotations (1) Pneumonia due to COVID-19 virus SNOMED Code(s): 530455234143803045 Code(s): U07.1 - COVID-19; J12.82 - PNEUMONIA DUE TO CORONAVIRUS DISEASE 2019 Status: Acute Current Visit: Yes - Problem List Review Problem List Initiated/Reviewed/Updated: Yes - My Orders Last 24 Hours: My Active Orders 01/01/21 17:59 Resuscitation Status Routine 01/01/21 19:12 Cardiac Monitoring [RC] CONTINUOUS Height and Weight [RC] 06 Intake and Output [RC] 04,16 Oxygen Therapy [RC] PRN RT Incentive Spirometry [RC] ASDIRECTED Up With Assistance [RC] BID VTE/DVT Education [RC] DAILY Vital Signs [RC] ,,,03 Acetaminophen [TylenoL] 650 mg PO Q4H PRN Isolation [COMM] Stat RT Acapella [RESPCARE] Routine 01/01/21 19:18 Nurse Communication: Isolation [RC] ASDIRECTED 01/01/21 20:00 Chest Physiotherapy [RT Chest Physiotherapy] [RC] ASDIRECTED 01/01/21 21:00 Famotidine [Pepcid] 20 mg PO BID Melatonin 6 mg PO BEDTIME 01/02/21 00:12 Pulse Oximetry Continuous Monitoring [OM.PC] Routine 01/02/21 Breakfast Regular Diet [DIET] 01/02/21 09:00 Zinc Sulfate [Zincate] 220 mg PO DAILY 01/02/21 09:30 Enoxaparin [Lovenox] 70 mg SUBCUT Q12HR 01/02/21 13:00 dexAMETHasone 6 mg PO DAILY@1300 01/02/21 14:02 Magnesium Sulfate/Water [Magnesium Sulfate in Water 4 GM/50 ML] 4 gm Premix Bag 1 bag IV ONETIME 01/02/21 15:00 Remdesivir 100 mg Sodium Chloride 0.9% [Normal Saline] 100 ml IV Q24H 01/03/21 05:11 C-REACTIVE PROTEIN [CHEM] AM CBC WITH AUTO DIFF [HEME] AM CMP [COMPREHENSIVE METABOLIC PN,CMP] [CHEM] AM MAGNESIUM [CHEM] AM PHOSPHORUS [CHEM] AM 01/04/21 05:11 C-REACTIVE PROTEIN [CHEM] AM CBC WITH AUTO DIFF [HEME] AM CMP [COMPREHENSIVE METABOLIC PN,CMP] [CHEM] AM MAGNESIUM [CHEM] AM PHOSPHORUS [CHEM] AM 01/05/21 05:11 C-REACTIVE PROTEIN [CHEM] AM CBC WITH AUTO DIFF [HEME] AM CMP [COMPREHENSIVE METABOLIC PN,CMP] [CHEM] AM MAGNESIUM [CHEM] AM PHOSPHORUS [CHEM] AM - Plan Plan:: 80-year-old non-Burmese speaker male with 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 -white count improving at 2.68. -D-dimer increased to 9.6 with a negative CTA for pulmonary embolism -CT showing severe changes of COVID disease throughout both lungs -Lactic acid of 3.6 with repeat of 2.2 -Rocephin, dexamethasone and remdesivir in the emergency department -Continue Rocephin, azithromycin, dexamethasone and remdesivir -melatonin, Pepcid, zinc -I-S, Acapella, respiratory therapy to follow -Titrate if FiO2 to keep SPO2 92% or above -Because of the increasing D-dimer will switch to full dose therapeutic Lovenox History of asthma and chronic lung disease of unknown type This places the patient at significantly increased risk of complications. -Albuterol MDI every 2 hours as needed -DuoNeb every 6 hours as needed Thrombocytopenia likely secondary to Covid -Improved to 120,000 Leukopenia also likely secondary to Covid -Will cover with antibiotics in case secondary bacterial infection that is not recognized in the chest. VTE prophylaxis with Lovenox if platelets stay above 100,000 CODE STATUS: DNR/DNI
[2021-01-02] MEDS: REMDESIVIR 100 MG in Sodium Chloride 0.9% 100 ML IV SCH (17:58)
[2021-01-02] MEDS ORDERED: Azithromycin 500 MG in Sodium Chloride 0.9% 250 ML IV SCH (18:00)
[2021-01-02] MEDS: Melatonin 3 MG Tab PO SCH (20:30)
[2021-01-03] MEDS: Famotidine 20 MG Tab PO SCH (08:17)
[2021-01-03] MEDS: Enoxaparin 80 MG/0.8 ML Syringe SUBCUT SCH (08:18)
[2021-01-03] MEDS: Zinc Sulfate 220 MG Cap PO SCH (08:18)
[2021-01-03] MEDS: Dexamethasone 4 MG Tab PO SCH (14:22)
[2021-01-03] MEDS: REMDESIVIR 100 MG in Sodium Chloride 0.9% 100 ML IV SCH (14:22)
--- NOTE | 2021-01-03 15:20 | PCM.DCSUM1 ---
Discharge Summary - Hospital Course HPI Initial Comments: 80-year-old male that does not speak Peruvian presented to the emergency department with increasing shortness of breath, feeling generalized anxiety, and exhibiting some COVID-19 symptoms throughout the week. Because he does not speak [place]uvian his son was used for an beer runner and further data was achieved through the emergency providers notes. Patient has not received a Covid vaccination. When he arrived at the emergency department he did have oxygen stagnation saturations in the 80s. After 2 L via nasal cannula he improved to 96 to 97%. This was turned down to 1 L. 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 Otherwise he is in good health. Son states he has had a cough since last month, which is at least in a week. CT angiogram of the chest showed no pulmonary embolism, severe changes of COVID- 19 disease throughout both sides of the chest. Mild parenchymal density within the right lung base either due to to focal fibrosis or small area of Covid pneumonia. 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 -Patient is leukopenic with a white count of 2.5. -D-dimer 6.15 with a negative CTA for pulmonary embolism -CT showing severe changes of COVID disease throughout both lungs -Lactic acid of 3.6 with repeat of 2.2 -CRP, ferritin, LDH not done given -Rocephin, Rocephin, dexamethasone and remdesivir in the emergency department -Continue dexamethasone and remdesivir -Start azithromycin -Start melatonin, Pepcid, zinc -I-S, Acapella, respiratory therapy to follow -Titrate if FiO2 to keep SPO2 92% or above History of chronic lung disease of unknown type This places the patient at significantly increased risk of complications. -Albuterol MDI every 2 hours as needed -DuoNeb every 6 hours as needed Thrombocytopenia likely secondary to Covid Leukopenia also likely secondary to Covid -Will cover with antibiotics in case secondary bacterial infection that is not recognized in the chest. VTE prophylaxis with Lovenox if platelets stay above 100,000 CODE STATUS: DNR/DNI Diagnosis: Stroke: No - Discharge Data Discharge Date: 01/03/21 Discharge Disposition: Home, Self-Care 01 Condition: Good - Referral to Home Health Primary Care Physician: Jaron Singh MD - Discharge Diagnosis/Problem(s) (1) Pneumonia due to COVID-19 virus SNOMED Code(s): 523265412403147437 ICD Code: U07.1 - COVID-19; J12.82 - PNEUMONIA DUE TO CORONAVIRUS DISEASE 2019 Status: Acute Current Visit: Yes - Patient Summary/Data Hospital Course: Patient did well over the 2 days of hospitalization. He was weaned to room air on day 3 and was able to ambulate with keeping oxygen levels in the mid 90s. Patient was no longer short of breath or coughing. Generally felt much better. It was felt that he did not need to continue remdesivir and dexamethasone. He does not have insurance and would not be able to afford full dose anticoagulation. There is no specific indication for it for him except he does have a very high D-dimer. CT angiogram was negative. Patient will complete his azithromycin treatment. He will follow-up if he has any worsening of symptoms. - Patient Instructions Diet: Usual Diet as Tolerated Driving: May Drive Today Showering/Bathing: May Shower Notify Provider of: Fever, Nausea and/or Vomiting Other/Special Instructions: Follow-up with primary care provider next week. - Discharge Plan *PRESCRIPTION DRUG MONITORING PROGRAM REVIEWED*: No *COPY OF PRESCRIPTION DRUG MONITORING REPORT IN PATIENT MAGALYS: No Prescriptions/Med Rec: Azithromycin 500 mg PO DAILY #2 tablet Home Medications: Home Meds Azithromycin 500 mg PO DAILY #2 tablet 01/03/21 [Rx] Patient Handouts: COVID-19 Frequently Asked Questions, 10 Things You Can Do to Manage Your COVID-19 Symptoms at Home - [facility] (10/25/2019), Sepsis, Self Care, Adult Forms: ED Department Discharge Referrals: Jaron Singh MD [Primary Care Provider] - - Discharge Summary/Plan Comment DC Time >30 min.: No Total # of Minutes for Discharge Time: 20 - General Info Date of Service: 01/03/21 Admission Dx/Problem (Free Text: Admission Diagnosis/Problem Admission Diagnosis/Problem Hypoxia Subjective Update: No complaints. No cough, fever, or chills. Functional Status: Reports: Pain Controlled - Review of Systems General: Reports: No Symptoms HEENT: Reports: No Symptoms Pulmonary: Reports: No Symptoms Cardiovascular: Reports: No Symptoms Gastrointestinal: Reports: No Symptoms Musculoskeletal: Reports: No Symptoms - Patient Data Vitals - Most Recent: Last Vital Signs Temp 97.7 F 01/03/21 14:22 Pulse 59 L 01/03/21 14:22 Resp 20 01/03/21 14:22 BP 158/81 H 01/03/21 14:22 Pulse Ox 91 L 01/03/21 14:22 Weight - Most Recent: 158 lb 14.4 oz I&O - Last 24 hours: Intake & Output 01/03/21 01/03/21 01/03/21 06:59 14:59 22:59 Intake Total 950 Output Total 1150 Balance -200 Lab Results - Last 24 hrs: Laboratory Results - last 24 hr 01/03/21 01/03/21 Range/Units 05:09 07:07 WBC 3.32 L (4.23-9.07) K/mm3 RBC 6.50 H (4.63-6.08) M/mm3 Hgb 17.0 (13.7-17.5) gm/dl Hct 50.9 (40.1-51.0) % MCV 78.3 L (79.0-92.2) fl MCH 26.2 (25.7-32.2) pg MCHC 33.4 (32.2-35.5) g/dl RDW Std Deviation 47.9 H (35.1-43.9) fL Plt Count 100 L (163-337) K/mm3 MPV 11.7 (9.4-12.3) fl Neut % (Auto) 58.1 (34.0-67.9) % Lymph % (Auto) 26.8 (21.8-53.1) % [place] % (Auto) 13.3 H (5.3-12.2) % Eos % (Auto) 1.2 (0.8-7.0) Baso % (Auto) 0.3 (0.1-1.2) % Neut # (Auto) 1.93 (1.78-5.38) K/mm3 Lymph # (Auto) 0.89 L (1.32-3.57) K/mm3 [place] # (Auto) 0.44 (0.30-0.82) K/mm3 Eos # (Auto) 0.04 (0.04-0.54) K/mm3 Baso # (Auto) 0.01 (0.01-0.08) K/mm3 Manual Slide Review Abnormal smear Sodium 138 (136-145) mEq/L Potassium 5.0 (3.5-5.1) mEq/L Chloride 100 (98-107) mEq/L Carbon Dioxide 32 (21-32) mEq/L Anion Gap 11.0 (5-15) BUN 17 (7-18) mg/dL Creatinine 0.9 (0.7-1.3) mg/dL Est Cr Clr Drug Dosing 64.37 mL/min Estimated GFR (MDRD) > 60 (>60) mL/min BUN/Creatinine Ratio 18.9 H (14-18) Glucose 117 H (70-99) mg/dL Calcium 8.4 L (8.5-10.1) mg/dL Phosphorus 3.8 (2.6-4.7) mg/dL Magnesium 1.9 (1.8-2.4) mg/dL Total Bilirubin 0.4 (0.2-1.0) mg/dL AST 84 H (15-37) U/L ALT 54 (16-63) U/L Alkaline Phosphatase 88 (46-116) U/L C-Reactive Protein 3.6 H* (<1.0) mg/dL Total Protein 7.6 (6.4-8.2) g/dl Albumin 3.0 L (3.4-5.0) g/dl Globulin 4.6 gm/dL Albumin/Globulin Ratio 0.7 L (1-2) SHAHZAD Results - Last 24 hrs: Microbiology 01/01/21 15:10 Blood Culture - Preliminary Blood - Venous - Lab Draw 01/01/21 12:37 Blood Culture - Preliminary Blood - Venous Med Orders - Current: Current Medications Acetaminophen (Acetaminophen 325 Mg Tab) 650 mg PO Q4H PRN PRN Reason: Pain (Mild 1-3)/fever Last Admin: 01/02/21 10:28 Dose: 650 mg Documented by: Dexamethasone (Dexamethasone 4 Mg Tab) 6 mg PO DAILY@1300 [facility] Stop: 01/10/21 13:01 Last Admin: 01/03/21 14:22 Dose: 6 mg Documented by: Enoxaparin Sodium (Enoxaparin 80 Mg/0.8 Ml Syringe) 70 mg SUBCUT Q12HR [facility] Last Admin: 01/03/21 08:18 Dose: 70 mg Documented by: Famotidine (Famotidine 20 Mg Tab) 20 mg PO BID [facility] Last Admin: 01/03/21 08:17 Dose: 20 mg Documented by: Remdesivir 100 mg/ Sodium (Chloride) 100 mls @ 100 mls/hr IV Q24H [facility] Stop: 01/05/21 15:59 Last Admin: 01/03/21 14:22 Dose: 100 mls/hr Documented by: Azithromycin 500 mg/ Sodium (Chloride) 250 mls @ 250 mls/hr IV Q24H [facility] Stop: 01/04/21 18:59 Last Admin: 01/02/21 19:33 Dose: 250 mls/hr Documented by: Melatonin (Melatonin 3 Mg Tab) 6 mg PO BEDTIME [facility] Last Admin: 01/02/21 20:30 Dose: 6 mg Documented by: Sodium Chloride (Sodium Chloride 0.9% 10 Ml Syringe) 10 ml FLUSH ASDIRECTED PRN PRN Reason: Keep Vein Open Last Admin: 01/01/21 13:10 Dose: 10 ml Documented by: Zinc Sulfate (Zinc Sulfate 220 Mg Cap) 220 mg PO DAILY [facility] Last Admin: 01/03/21 08:18 Dose: 220 mg Documented by: Discontinued Medications Dexamethasone (Dexamethasone 10 Mg/Ml Sdv) 6 mg IVPUSH ONETIME ONE Stop: 01/01/21 14:07 Last Admin: 01/01/21 14:25 Dose: 6 mg Documented by: Enoxaparin Sodium (Enoxaparin 40 Mg/0.4 Ml Syringe) 40 mg SUBCUT DAILY [facility] Enoxaparin Sodium (Enoxaparin 40 Mg/0.4 Ml Syringe) 40 mg SUBCUT BID [facility] Last Admin: 01/02/21 12:07 Dose: Not Given Documented by: Sodium Chloride (Normal Saline) 100 mls @ 75 mls/hr IV ASDIRECTED [facility] Ceftriaxone Sodium 2 gm/ (Sodium Chloride) 100 mls @ 200 mls/hr IV ONETIME ONE Stop: 01/01/21 14:35 Last Admin: 01/01/21 14:24 Dose: 200 mls/hr Documented by: Remdesivir 200 mg/ Sodium (Chloride) 250 mls @ 250 mls/hr IV ONETIME ONE Stop: 01/01/21 15:59 Last Admin: 01/01/21 15:09 Dose: 250 mls/hr Documented by: Magnesium Sulfate 4 gm/ Premix 50 mls @ 12.5 mls/hr IV ONETIME ONE Stop: 01/02/21 18:01 Last Admin: 01/02/21 14:27 Dose: 12.5 mls/hr Documented by: Iopamidol (Iopamidol 755 Mg/Ml 100 Ml Bottle) 100 ml IVPUSH ONETIME ONE Stop: 01/01/21 13:24 Last Admin: 01/01/21 18:07 Dose: Not Given Documented by: Sodium Chloride (Sodium Chloride 0.9% 10 Ml Syringe) 10 ml FLUSH ONETIME PRN PRN Reason: IV FLUSH - Exam Quality Assessment: Denies: Supplemental Oxygen General: Reports: Alert, Oriented HEENT: Reports: Pupils Equal, Mucous Membr. Moist/[place] Neck: Reports: Supple Lungs: Reports: Clear to Auscultation, Normal Respiratory Effort Cardiovascular: Reports: Regular Rate, Regular Rhythm GI/Abdominal Exam: Normal Bowel Sounds, Soft, Non-Tender, No Organomegaly, No Distention, No Mass Extremities: Normal Inspection, Non-Tender, No Pedal Edema
--- NOTE | 2021-01-03 20:00 | PCM.EKG ---
#1 Interpretation EKG Date: 01/02/21 Time: 22:00 Rhythm: NSR Rate (Beats/Min): 56 [place]: Other (indeterminate) P-Wave: Present QRS: Normal (Q waves in leads V1 through V4, 1 and aVL consistent with anterior lateral infarct poor R wave progression) ST-T: Normal QT: Normal EKG Interpretation Comments: Abnormal EKG. possible anterolateral infarct age undetermined. Also possible RVH secondary to indeterminate QRS axis
== END 2021-01-03 17:05 | disposition home or self-care (01) | DRG 177 ==
LOC: JD.ED 10:54 → JD.MS 14:55
PROVIDERS: ADMIT Family Medicine; ATTEND Family Medicine
PROC: XW033E5 Introduction of Remdesivir Anti-infective into Peripheral Vein, Percutaneous Approach, New Technology Group 5 (ICD-10-PCS; principal; 2021-01-01)
PROC: 3E0333Z Introduction of Anti-inflammatory into Peripheral Vein, Percutaneous Approach (ICD-10-PCS; principal; 2021-01-01)
PROC: 8E0ZXY6 Isolation (ICD-10-PCS; principal; 2021-01-01)
DX: U07.1 COVID-19 (principal); J12.82 Pneumonia due to coronavirus disease 2019; D72.819 Decreased white blood cell count, unspecified; D69.6 Thrombocytopenia, unspecified; Z66 Do not resuscitate; Z79.899 Other long term (current) drug therapy; J45.909 Unspecified asthma, uncomplicated
CPT/HCPCS: 36415; 71045; 71045-26; 71275; 71275-26; 80053; 83605; 83735; 84100; 84484; 85025; 85379; 86140; 87040; 93005; 93010; 93970; 93970-26; 94667; 94668; 94762; 96365; 96375; 99222; 99232; 99238; 99284; 99285-25; A9270-GY; J0456; J0696; J1100; J1650; J3475; J7050; J8540; U0002

== ENCOUNTER 2022-02-16 18:51 | Emergency (ER) | payer SELFPAY ==
[2022-02-16] MEDS ORDERED: Sodium Chloride 0.9% 10 ML Syringe FLUSH PRN (20:21)
[2022-02-16] MEDS ORDERED: cefTRIAXone 2 GM in Sodium Chloride 0.9% 100 ML IV STA (20:21)
[2022-02-16] MEDS ORDERED: Sodium Chloride 0.9% 1,000 ML IV ONE ×2 (20:21→22:44)
[2022-02-16] MEDS ORDERED: Norepinephrine 4 MG in Dextrose 5% in Water 246 ML IV SCH ×2 (20:30)
[2022-02-16 21:34] LABS: CORONAVIRUS COVID-19 NAA NEGATIVE (NEGATIVE)
[2022-02-16] MEDS ORDERED: Aspirin 81 MG Tab.Chew PO STA (22:11)
[2022-02-16] MEDS ORDERED: Heparin Sodium 5,000 Units/ML Vial IVPUSH STA (22:11)
[2022-02-16] MEDS ORDERED: atorvaSTATin 40 MG Tab PO STA (22:15)
[2022-02-16] MEDS ORDERED: Heparin Sodium/D5W 25,000 UNITS/500 ML BAG IV SCH (22:15)
[2022-02-16] MEDS ORDERED: Iopamidol 755 Mg/ML 100 ML Bottle IVPUSH ONE (22:20)
== END 2022-02-16 23:49 ==
LOC: JD.ED 18:51
DX: A41.9 Sepsis, unspecified organism (principal); I21.3 ST elevation (STEMI) myocardial infarction of unspecified site; I50.9 Heart failure, unspecified; N39.0 Urinary tract infection, site not specified; Z86.16 Personal history of COVID-19; Z79.899 Other long term (current) drug therapy; Z87.891 Personal history of nicotine dependence; Z20.822 Contact with and (suspected) exposure to COVID-19
CPT/HCPCS: 0241U; 36415; 71045; 71275; 80053; 81001; 83605; 83735; 83880; 84145; 84484; 85007; 85027; 85379; 85610; 85730; 86140; 87040; 87086; 87088; 87186; 93005; 96365; 96366; 96367; 96368; 96376; 99285; A9270; J0696; J1644; J3370; J3475; J3490; J7030; J7060; Q9967